=== PATIENT | male | born 1945 | race African-American/Black ===

== ENCOUNTER 2021-04-28 22:41 | Emergency (ER) | payer OTHER ==
[2021-04-29 00:03] LABS: Hematocrit 43.9 % (35.5-45.6); Hemoglobin 14.4 gm/dl (11.8-15.2); Mean Corpuscular HGB Conc 33 % (32-34); Mean Corpuscular Volume 98 fl (84-94); Platelet Count 164 K/mm3 (140-440); Red Blood Count 4.49 M/mm3 (3.65-5.03); Red Cell Distribution Width 13.7 % (13.2-15.2)
[2021-04-29 00:19] LABS: Alanine Aminotransferase 10 units/L (7-56); Albumin 4.2 g/dL (3.9-5); BUN/Creatinine Ratio 13; Blood Urea Nitrogen 13 mg/dL (9-20); Hemolysis Index 6
[2021-04-29 00:48] LABS: Amorphous Crystals,Urine Few; Bacteria,Urine 1+ /HPF (Negative); Bilirubin,Urine NEG (Negative); Blood,Urine SM (Negative); Color,Urine Amber (Yellow); Mucus,Urine FEW /HPF
[2021-04-29] MEDS ORDERED: LIDOCAINE-MPF (1%) 10 MG/1 ML VIAL 5 ML INFILTRATI ONE (00:59)
[2021-04-29] MEDS ORDERED: IBUPROFEN 600 MG TAB PO ONE (00:59)
--- NOTE | 2021-04-29 01:05 | Emergency Department Report ---
ED Male HPI - General Chief complaint: Abdominal Pain Stated complaint: PAINFUL URINATION Source: patient Mode of arrival: Ambulatory Limitations: No Limitations - History of Present Illness Initial comments: Patient is a 76-year-old [place] male with history of hyperlipidemia, [id number] diabetes, and hypertension who presents to the ED with complaint of acute onset persistent dysuria, urinary frequency and urgency, and penile irritation for the last 1 week, worse in the last 3 days. Patient admits to having sexual intercourse but with protection. Patient denies dizziness, syncope, fall, traumatic injury, hematuria, testicular pain, abdominal pain, nausea, vomiting, diarrhea, numbness and tingling or weakness of lower extremities bilaterally or penile discharge. MD Complaint: dysuria, other (Penile irritation; urinary frequency and urgency) -: Sudden, week(s) (1) Location: penis Radiation: none Severity: moderate Severity scale (0 -10): 5 Quality: burning, sharp Consistency: intermittent Improves with: none Worsens with: urination denies other symptoms, rash (Penile irritation), dysuria, other (Urinary frequency and urgency). denies: discharge, swelling, mass, urinary retention, blood in urine, fever, nausea/vomiting - Related Data Sexually active: Yes Previous Rx's Medication Instructions Recorded Last Taken Type Aspirin EC [Ecotrin] 325 mg PO QDAY #30 tablet 06/12/15 Unknown Rx AtorvaSTATin 10 mg PO QHS tablet 06/12/15 Unknown Rx Glimepiride [Amaryl] 4 mg PO QDDIAB tablet 06/12/15 Unknown Rx ISOSORBIDE MONOnitrate [Imdur ER] 60 mg PO QDAY #30 tablet 06/12/15 Unknown Rx Metoprolol [Lopressor TAB] 50 mg PO BID #60 tablet 06/12/15 Unknown Rx Nitroglycerin [Nitrostat] 0.4 mg SL .Q5MIN PRN #50 tablet 06/12/15 Unknown Rx Acyclovir 400 mg PO Q8H #30 tablet 04/29/21 Unknown Rx Acyclovir [Acyclovir Ointment] 1 applic TP TID #1 tube 04/29/21 Unknown Rx Ibuprofen [Motrin] 600 mg PO Q8H PRN #30 tablet 04/29/21 Unknown Rx Sulfamethoxazole/Trimethoprim 1 each PO Q12H #20 tablet 04/29/21 Unknown Rx [Bactrim DS TAB] Allergies Allergy/AdvReac Type Severity Reaction Status Date / Time No Known Allergies Allergy Verified 06/07/15 07:35 ED Review of Systems ROS: Stated complaint: PAINFUL URINATION Other details as noted in HPI Constitutional: denies: chills, fever Eyes: denies: eye pain, eye discharge, vision change ENT: denies: ear pain, throat pain Respiratory: denies: cough, shortness of breath, wheezing Cardiovascular: denies: chest pain, palpitations Endocrine: no symptoms reported Gastrointestinal: denies: abdominal pain, nausea, diarrhea Genitourinary: urgency, dysuria, frequency, other (Penile irritation). denies: hematuria, discharge, testicular pain, testicular mass Musculoskeletal: denies: back pain, joint swelling, arthralgia Skin: denies: rash, lesions Neurological: denies: headache, weakness, paresthesias Psychiatric: denies: anxiety, depression Hematological/Lymphatic: denies: easy bleeding, easy bruising ED Past Medical Hx - Past Medical History Previous Medical History?: Yes Hx Hypertension: Yes Hx Diabetes: Yes Hx Kidney Stones: Yes (surgically removed) - Surgical History Past Surgical History?: Yes Additional Surgical History: KIDNEY STONES - Social History Smoking Status: Never Smoker - Medications Home Medications: Home Medications Medication Instructions Recorded Confirmed Last Taken Type Aspirin EC [Ecotrin] 325 mg PO QDAY #30 tablet 06/12/15 Unknown Rx AtorvaSTATin 10 mg PO QHS tablet 06/12/15 Unknown Rx Glimepiride [Amaryl] 4 mg PO QDDIAB tablet 06/12/15 Unknown Rx ISOSORBIDE MONOnitrate [Imdur ER] 60 mg PO QDAY #30 tablet 06/12/15 Unknown Rx Metoprolol [Lopressor TAB] 50 mg PO BID #60 tablet 06/12/15 Unknown Rx Nitroglycerin [Nitrostat] 0.4 mg SL .Q5MIN PRN #50 tablet 06/12/15 Unknown Rx Acyclovir 400 mg PO Q8H #30 tablet 04/29/21 Unknown Rx Acyclovir [Acyclovir Ointment] 1 applic TP TID #1 tube 04/29/21 Unknown Rx Ibuprofen [Motrin] 600 mg PO Q8H PRN #30 tablet 04/29/21 Unknown Rx Sulfamethoxazole/Trimethoprim 1 each PO Q12H #20 tablet 04/29/21 Unknown Rx [Bactrim DS TAB] ED Physical Exam - General Limitations: No Limitations General appearance: alert, in no apparent distress - Head Head exam: Present: atraumatic, normocephalic, normal inspection - Eye Eye exam: Present: normal appearance, PERRL, EOMI Pupils: Present: normal accommodation - ENT ENT exam: Present: normal exam, normal orophraynx, mucous membranes moist, TM's normal bilaterally, normal external ear exam - Neck Neck exam: Present: normal inspection, full ROM - Respiratory Respiratory exam: Present: normal lung sounds bilaterally. Absent: respiratory distress, wheezes, rales, rhonchi, chest wall tenderness, accessory muscle use, decreased breath sounds, prolonged expiratory - Cardiovascular Cardiovascular Exam: Present: regular rate, normal rhythm, normal heart sounds. Absent: systolic murmur, diastolic murmur, rubs, gallop - GI/Abdominal GI/Abdominal exam: Present: soft, normal bowel sounds. Absent: tenderness, guarding, rebound, hyperactive bowel sounds, hypoactive bowel sounds, organomegaly, bruit, pulsatile mass - exam: Absent: testicular tenderness, urethral discharge, scrotal swelling, vertical testicular lie, circumcision External exam: Present: erythema, lesions (Ulcerated tender vesicular lesions on the penile shaft with purulent discharge and tenderness). Absent: swelling, lacerations, ecchymosis, bleeding - Extremities Exam Extremities exam: Present: normal inspection, full ROM, normal capillary refill. Absent: tenderness, pedal edema - Back Exam Back exam: Present: normal inspection, full ROM. Absent: tenderness, CVA tenderness (R), CVA tenderness (L), muscle spasm, paraspinal tenderness, vertebral tenderness - Neurological Exam Neurological exam: Present: alert, oriented X3, CN II-XII intact, normal gait, reflexes normal - Psychiatric Psychiatric exam: Present: normal affect, normal mood - Skin Skin exam: Present: warm, dry, intact, normal color. Absent: rash ED Course Vital Signs 04/28/21 22:48 Temperature 98.1 F Pulse Rate 71 Respiratory 16 Rate Blood Pressure 129/81 [Right] O2 Sat by Pulse 99 Oximetry ED Medical Decision Making - Lab Data Result diagrams: 04/28/21 23:34 04/28/21 23:34 - Medical Decision Making This is a 76-year-old [place] male with history of hyperlipidemia, [id number] diabetes, and hypertension who presents to the ED with complaint of acute onset persistent dysuria, urinary frequency and urgency, and penile irritation for the last 1 week, worse in the last 3 days. Patient admits to having sexual intercourse but with protection. In the ED, patient is alert and oriented x3 and is not in any distress. Patient is hemodynamically stable. Urinalysis showed significant urinary tract infection characterized by positive nitrites and > 53 WBCs. Other lab test results showed mild hyponatremia of 133 mmol/L. Rest of the lab test results are nonactionable. Patient received Rocephin 1 g intramuscular injection in the ED. Patient was also treated for pain in the ED. Patient was discharged home on medications including antibiotics and antiviral medication for suspected genital herpes infection. Patient was advised to follow-up with [facility] for furt her STD testing including HIV and chlamydia or gonorrhea as well as HIV. Patient was advised return to the ED immediately if symptoms get worse. - Differential Diagnosis Genital herpes; UTI; gonorrhea or chlamydia Critical care attestation.: If time is entered above; I have spent that time in minutes in the direct care of this critically ill patient, excluding procedure time. 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 Therefore take medications with food, drink plenty of fluids and follow-up with your primary care physician in 7 to 10 days for reevaluation. Return to the ED immediately if your symptoms get worse. Prescriptions: Acyclovir 400 mg PO Q8H #30 tablet Acyclovir [Acyclovir Ointment] 1 applic TP TID #1 tube Sulfamethoxazole/Trimethoprim [Bactrim DS TAB] 1 each PO Q12H #20 tablet Ibuprofen [Motrin] 600 mg PO Q8H PRN #30 tablet PRN Reason: Pain Referrals: DARYL NGUYỄN MD [Primary Care Provider] - 3-5 Days Time of Disposition: 01:09 Print Language: [id number]
[2021-04-29 01:47] VITALS: BP 137/80
[2021-04-29 04:18] LABS: Band Neutrophils # (Manual) 0.4 K/mm3; Myelocytes # (Manual) 0.4 K/mm3; Total Cells Counted 100
[2021-04-29 04:19] LABS: Platelet Estimate Consistent w Auto; RBC Morphology Normal
== END 2021-04-29 01:48 | disposition home or self-care (01) ==
LOC: ED 22:41
DX: N39.0 Urinary tract infection, site not specified (principal); A60.02 Herpesviral infection of other male genital organs; I10 Essential (primary) hypertension; E11.8 Type 2 diabetes mellitus with unspecified complications; Z98.890 Other specified postprocedural states
CPT/HCPCS: 36415; 80053; 81001; 85007; 85025; 87086; 96372; 99283; J0696; J3490